=== PATIENT | male | born 1960 | race Hispanic/Latino ===

== ENCOUNTER 2021-03-09 19:15 | Emergency (ER) | payer SELFPAY ==
[~2021-03-09] VITALS: Ht 172.7 cm; Wt 95.0 kg
--- NOTE | 2021-03-10 07:20 | EKG ---
[facility] [address] [place], [place] [address] Signed Normal sinus rhythm Normal ECG No previous ECGs available Confirmed by SELENA SANCHEZ MD [id number] on 03/10/2021 7:20:33 AM Electronically Signed By: SELENA SANCHEZ MD 03/10/21 0720 PATIENT NAME: HAN RAM Electrocardiogram DATE OF : 60 PHYSICIAN: ESLENA SANCHEZ MD REPORT #: [id number] REPORT IS CONFIDENTIAL AND NOT TO BE RELEASED WITHOUT AUTHORIZATION
== END 2021-03-10 00:03 | disposition home or self-care (01) ==
LOC: ED 19:15
DX: U07.1 COVID-19 (principal)
CPT/HCPCS: 71045; 80053; 81001; 83605; 85025; 87040; 93005; 93010; 99284-25; A9270; M0243; Q0244; U0003